=== PATIENT | female | born 1950 | race Hispanic/Latino ===

== ENCOUNTER → 2019-03-20 | Day surgery (SDC) | payer MEDICARE ==
[2019-03-04 14:54] LABS: BASOPHILS % 0.4 % (0.0-1.0); EOSINOPHILS # (AUTO) 0.1 (0.0-0.4); EOSINOPHILS % 1.9 % (0.0-6.0); HEMATOCRIT 38.6 % (34.2-44.1); HEMOGLOBIN 12.8 g/dL (12.0-16.0); LYMPHOCYTES # (AUTO) 1.1 (1.0-3.2); LYMPHOCYTES % 21.4 % (18.0-39.1); MEAN CORPUSCULAR HEMOGLOBIN 28.6 pg (28-32); MEAN CORPUSCULAR HGB CONC 33.2 g/dL (31-35); MEAN CORPUSCULAR VOLUME 86.4 fL (81-99); MONOCYTES # (AUTO) 0.4 (0.2-0.8); MONOCYTES % 8.3 % (4.4-11.3); NEUTROPHILS # (AUTO) 3.6 (2.1-6.9); NEUTROPHILS % 67.6 % (38.7-80.0); PLATELET COUNT 209 x10e3/uL (140-360); RED BLOOD COUNT 4.47 x10e6/uL (3.6-5.1); RED CELL DISTRIBUTION WIDTH 12.7 % (11.7-14.4)
[~2019-03-20] MED LIST: CALCIUM600 M1; EPHEDRINE SULFATE INJ 50 MG/10 ML SYR ONE; FENTANYL CITRATE/PF 100MCG/2 ML INJ ONE; HYDROCHLOROTHIA25 MG PO; MIDAZOLAM HCL 2 MG/2 ML VIAL ONE; MULTI-VITAMIN1 EACH PO; PROPOFOL IV EMULSION 10 MG/ML 50 ML VIAL ONE; Z.0.ESTRADIOL0.5 MG PO; Z.0.GLUCOSAMINE1000; Z.0.METOPROLOL SUCC2 PO
--- OUTSIDE RECORDS SUMMARY | 2019-03-20 06:28 | XMS REPORT ---
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 Mike A Bradly ENCOUNTERS Date Type Provider Location Encounter Diagnosis - Ambulatory Encounter Mike A Bradly Mike A Bradly [facility] - Ambulatory Encounter Mike A Bradly Mike A Bradly [facility] - Ambulatory Encounter Mike A Bradly Mike A Bradly [facility] - Ambulatory Encounter Mike A Bradly Mike A Bradly [facility] - Ambulatory Encounter [facility] Mike A Bradly Mike A Bradly [facility] [facility] - Ambulatory Encounter Mike A Bradly Mike A Bradly [facility] [facility] - Ambulatory Encounter Mike A Bradly Mike A Bradly [facility] [facility] - Ambulatory Encounter Mike A Bradly Mike A Bradly [facility] UN[facility] - Ambulatory Encounter Mike A Bradly Mike A Bradly Ly Goodwin [facility] Asymptomatic postmenopausal status (age- related) (natural) - Ambulatory Encounter Mike A Brdaly Mike A Bradly [facility] UNK - Ambulatory Encounter Mike A Bradly Mike A Bradly [facility] UNK - Ambulatory Encounter Mike A Bradly Mike A Bradly [facility] UNK - Ambulatory Encounter Mike A Bradly Mike A Bradly [facility] UNK - [facility] - [facility] Mike A Bradly Mike A Bradly [facility] [employer] UNK - Ambulatory Encounter Mike A Bradly Mike A Bradly [facility] UNK - Ambulatory Encounter Mike A Bradly Mike A Bradly [facility] Davis [facility] PR[facility] Annual welding machine operator thermit examMammogram not high risk screeningOsteoporosis screeningScreening, vaginal cancer VITAL SIGNS No Information Available Allergies No Known Allergy Information REASON FOR REFERRAL Start Date - End Date Service - Mammogram - Screening - Mammogram - Screening - Bone Density - Bone Density RESULTS Date Observation Value Provider Reference Range Interpretation Location LDL cholesterol, serum 110 mg/dL [facility] 0-99 High " very low density lipoproteins 25 mg/dL [facility] 5-40 " HDL cholesterol, serum 55 mg/dL [facility] >39 " triglyceride, serum, fasting 123 mg/dL [facility] 0-149 " cholesterol, serum 190 mg/dL [facility] 100-199 " alanine aminotransferase (SGPT), serum 20 1/L [facility] 0-32 " aspartate aminotransferase (SGOT), serum 19 1/L [facility] 0-40 " alkaline phosphatase, serum 74 1/L [facility] 39-117 " bilirubin, serum, total 0.8 mg/dL [facility] 0.0-1.2 " albumin/globulin ratio, serum 2.3 [facility] 1.2-2.2 High " globulin, serum 2.0 [facility] 1.5-4.5 " albumin, serum 4.6 g/dL [facility] 3.6-4.8 " protein, total, serum 6.6 g/dL [facility] 6.0-8.5 " calcium, serum 9.6 mg/dL [facility] 8.7-10.3 " carbon dioxide, venous blood 27 mmol/L [facility] 18-29 " chloride, serum 105 mmol/L [facility] 96-106 " potassium, serum 4.4 mmol/L [facility] 3.5-5.2 " sodium, serum 145 mmol/L [facility] 134-144 High " urea nitrogen/creatinine ratio, serum 17 [facility] 12-28 " eGFR if 94 mL/min/((173/100).m2) [facility] >59 " Estimated Glomerular Filtration Rate (calc) 82 mL/min/((173/100).m2) [facility] >59 " creatinine, serum 0.77 mg/dL [facility] 0.57-1.00 " urea nitrogen, blood 13 mg/dL [facility] 8-27 " blood glucose, random 98 mg/dL [facility] 65-99 " immature granulocytes, percentage of total cells, blood 0 % [facility] " basophil count, absolute 0.0 x10E3/uL [facility] 0.0-0.2 " Eosinophil Absolute Count 0.1 X10E3/UL [facility] 0.0-0.4 " monocyte count, blood, automated 0.3 X10E3/UL [facility] 0.1-0.9 " lymphocyte count, blood, automated 0.8 X10E3/UL [facility] 0.7-3.1 " Absolute Neutrophils 3.0 X10E3/UL [facility] 1.4-7.0 " basophils as percent of blood leukocytes 1 % [facility] " eosinophils as percent of blood leukocytes 1 % [facility] " monocytes as percent of blood leukocytes 7 % [facility] " lymphocytes as percent of blood leukocytes 20 % [facility] " neutrophils as percent of blood leukocytes 71 % [facility] " platelet count 219 X10E3/UL [facility] 150-379 " red blood cell distribution width 13.6 % [facility] 12.3-15.4 " mean corpuscular hemoglobin concentration, RBC 33.6 G/DL [facility] 31.5-35.7 " mean corpuscular hemoglobin, RBC 29.5 pg [facility] 26.6-33.0 " mean corpuscular volume, RBC 88 fL [facility] 79-97 " hematocrit, blood 39.9 % [facility] 34.0-46.6 " hemoglobin, blood 13.4 g/dL [facility] 11.1-15.9 " erythrocyte (RBC) count 4.55 X10E6/UL [facility] 3.77-5.28 " leukocyte count, blood 4.2 X10E3/UL [facility] 3.4-10.8 HISTORY OF IMMUNIZATIONS No Information Available Medications No Known Medication Information SOCIAL HISTORY Date Observation Value Provider drug use, illicit Never Ly Shah " alcohol use Never Ly Shah " social history E&M . Spouse/Partner/Significant Other: Kyaw. Not homeless. Born in [place]. Not employed. Unemployed. Highest education level: high school graduate. Sex at : Female. Sexual orientation: Heterosexual. Gender identity: Female. Gender of partner(s): Male. Sexually Active: yes. Ly Shah " social history reviewed E&M reviewed today Ly Shah " sexual orientation Heterosexual Ly Shah " assessment of health literacy ([facility], 1928[facility]1983 2014 Standards, 3C10) Adequate Ly Shah " passive cigarette smoke exposure No Ly Martinezs " smoking status never smoker Ly Shah " Exercise Program Referral T Ly Shah " Weight Management Counseling Provided T Ly Shah " Nutrition intervention T Ly Shah sexual orientation Heterosexual Aamir Goodwin " assessment of health literacy ([facility], 1928–1983 2014 Standards, 3C10) Adequate Aamir Goodwin " passive cigarette smoke exposure No Aamir Goodwin " drug use, illicit Never Ly Shah " alcohol use Never Ly Shah " smoking status never smoker Ly Shah " social history reviewed E&M reviewed today Ly Shah " Exercise Program Referral T Aamir Goodwin " Weight Management Counseling Provided T Aamir Goodwin " Nutrition intervention T Aamir Goodwin patient considered to be homeless No Ingrid Davis " sex at Female Ingridaravind Davis " Occupation #1 Unemployed Ingrid Ryan " drug use, illicit Never Ingrid Davis " alcohol use Never Ingrid Ryan " social history reviewed E&M reviewed today Ingrid Davis " sexual orientation Heterosexual Ingrid Ryan " passive cigarette smoke exposure No Ingrid Davis " smoking status never smoker Ingridaravind Davis " assessment of health literacy ([facility], 1928[facility]1983 2014 Standards, 3C10) Adequate Ingrid Davis " Exercise Program Referral T Ingrid Davis " Weight Management Counseling Provided T Ingrid Davis " Nutrition intervention T Ingrid Davis FUNCTIONAL STATUS No Information Available MENTAL STATUS Date Observation Value Provider Generalized Anxiety Disorder Questionnaire - Question 2 0 Ly Martinezs " Generalized Anxiety Disorder Questionnaire - Question 1 0 Ly Shah Generalized Anxiety Disorder Questionnaire - Question 2 0 Aamir Goodwin " Generalized Anxiety Disorder Questionnaire - Question 1 0 Aamir Goodwin Generalized Anxiety Disorder Questionnaire - Question 2 0 Ingrid Ryan " Generalized Anxiety Disorder Questionnaire - Question 1 0 Ingrid Ryan MEDICAL EQUIPMENT No Information Available FAMILY HISTORY No Information Available INSURANCE PROVIDERS No Information Available ADVANCE DIRECTIVES No Information Available TREATMENT PLAN Date Name Pap w/HPV w rflx 16/18/45 (30+) Lipid Panel Comp. Metabolic Panel (14) CBC With Differential/Platelet - - - - - Est Patient Well Exam (40 - 64 Yrs) - 70695 Est Patient Well Exam (65 & Over) - 81082 New Patient Well Exam (40 - 64 Yrs) - 10414 HISTORY OF PROCEDURES No Information Available GOALS No Information Available HEALTH CONCERNS No Information Available
--- OUTSIDE RECORDS SUMMARY | 2019-03-20 06:28 | XMS REPORT ---
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 Allergies, Adverse Reactions, Alerts This patient has no known allergies or adverse reactions. Medications This patient has no known medications. Results Test Description Test Time Test Comments Text Results Atomic Results Result Comments SCR MAMM BILATERAL ROBERTO CAD DIGITAL 2019-01-10 16:48:14 - SCR MAMM BILATERAL ROBERTO CAD DIGITALBILATERAL DIGITAL SCREENING MAMMOGRAM 3D/2D WITH CAD: 01/10/2019CLINICAL: Asymptomatic. Digital breast tomosynthesis was performed in addition to routine CC and MLO views. Current mammographic images were evaluated by either a [employer] M-Vu or a [employer] ImageChecker CAD (computer aided detection system). Comparison is made to exams dated 12/01/2017 mammogram, 2016 mammogram, and 11/23/2015 mammogram - [facility]. There are scattered fibroglandular tissues in both breasts. There is a stable benign mass in the lateral right breast. There also is a stable benign-appearing asymmetry in the posteromedial left breast. No suspicious new mass, architectural distortion, malignant type calcification, or lymph node abnormality detected. Breast architecture is stable compared to prior exams.IMPRESSION: BENIGNThere is no mammographic evidence of malignancy. Resume annual screening mammography in one year. Jose G Verma M.D. rb/:01/10/2019 16:48:14 Salesperson Hosiery: Adeline JOHNSTON, [facility]: BIRADS 1-2 Normal Mammogram BI-RADS: 2 Benign
[2019-03-20 10:50] VITALS: BP 125/63
--- NOTE | 2019-03-20 15:44 | Operative Report ---
DATE OF PROCEDURE: 03/20/2019 SURGEON: Charles Hernandez MD PROCEDURES: EGD with biopsies and colonoscopy. INDICATIONS FOR EGD: Heartburn. INDICATION FOR COLONOSCOPY: Surveillance colonoscopy, personal history of colon polyps. MEDICATIONS: The patient was done under MAC, please see anesthesiologist's note. PROCEDURE IN DETAIL: With the patient in the left lateral decubitus position, a flexible fiberoptic Olympus gastroscope was introduced into the esophagus under direct visualization without any difficulty. There was some patchy erythema noted in distal esophagus. GE junction appeared somewhat nodular and that was biopsied. The scope was then advanced with ease into the stomach traversing a small sliding hiatal hernia. Mucosa overlying the antrum and the body revealed some patchy erythema and low-grade to moderate edema, and biopsies were obtained and sent to stain for H. pylori. Pylorus was of normal contour and shape. It was intubated with ease and the scope was advanced all the way to the second portion of the duodenum. Biopsies were obtained from the proximal second portion and duodenal bulb to rule out sprue. The scope was then withdrawn back into the stomach and retroflexed, and mucosa overlying the fundus and the cardia appeared to be within normal limits. The scope was then straightened out, it was subsequently withdrawn, and the patient tolerated the procedure well. IMPRESSION: 1. Distal esophagitis. 2. GE junction somewhat nodular, biopsied. 3. Small sliding hiatal hernia. 4. Gastritis, biopsied, biopsies sent to stain for Helicobacter pylori. 5. Rule out sprue. PLAN: Follow up histology. Initiate Protonix 40 mg 1 p.o. q.a.m. before meals. The patient was then turned around and after adequate lubrication of the anal canal, a flexible fiberoptic Olympus colonoscope was inserted into the rectum with ease and advanced all the way to the cecum. The scope was then withdrawn slowly. Mucosa overlying the cecum, ascending colon, transverse colon, descending, sigmoid, and rectum appeared to be within normal limits. The scope was then retroflexed into the distal rectum and small internal hemorrhoids were noted, none of which was actively bleeding. The scope was then straightened out, it was subsequently withdrawn, and the patient tolerated the procedure well. IMPRESSION: Internal hemorrhoids, none actively bleeding. PLAN: Initiate high-fiber low-fat diet. Initiate high-fiber supplement. The patient might benefit from a followup colonoscopy in 5 years. MD CORAZON Bell/CARI /[id number] cc: Wander Hernandez MD
== END | disposition home or self-care (01) ==
LOC: OR 06:25
PROVIDERS: ATTEND Internal Medicine Gastroenterology
DX: K29.50 Unspecified chronic gastritis without bleeding (principal); Z86.010 Personal history of colon polyps; K29.80 Duodenitis without bleeding; K21.0 Gastro-esophageal reflux disease with esophagitis; K44.9 Diaphragmatic hernia without obstruction or gangrene; K64.8 Other hemorrhoids; I10 Essential (primary) hypertension; R00.1 Bradycardia, unspecified; Z01.812 Encounter for preprocedural laboratory examination; Z01.810 Encounter for preprocedural cardiovascular examination; Z86.31 Personal history of diabetic foot ulcer
CPT/HCPCS: 36415; 43239; 45378; 85025; 88305; 88312; 93005; J2250; J2704; J3010

== ENCOUNTER → 2024-02-08 | Day surgery (SDC) | payer MEDICARE, OTHER ==
[2024-02-02 11:52] LABS: BASOPHILS % 0.4 % (0.0-1.0); EOSINOPHILS # (AUTO) 0.1 (0.0-0.4); EOSINOPHILS % 1.1 % (0.0-6.0); HEMATOCRIT 40.6 % (34.2-44.1); HEMOGLOBIN 13.1 g/dL (12.0-16.0); LYMPHOCYTES # (AUTO) 0.8 (1.0-3.2); LYMPHOCYTES % 14.4 % (18.0-39.1); MEAN CORPUSCULAR HGB CONC 32.3 g/dL (31-35); MONOCYTES # (AUTO) 0.5 (0.2-0.8); NEUTROPHILS # (AUTO) 4.3 (2.1-6.9); NEUTROPHILS % 75.9 % (38.7-80.0); PLATELET COUNT 219 x10e3/uL (140-360); RED BLOOD COUNT 4.51 x10e6/uL (3.6-5.1); RED CELL DISTRIBUTION WIDTH 13.3 % (11.7-14.4); WHITE BLOOD COUNT 5.64 x10e3/uL (4.8-10.8)
[~2024-02-08] MED LIST changes: -EPHEDRINE SULFATE INJ 50 MG/10 ML SYR ONE; -FENTANYL CITRATE/PF 100MCG/2 ML INJ ONE; +LIPITOR10 MG PO; +MAGNESIUM OXID400 MG PO; +PANTOPRAZOLE SO40 MG PO; -PROPOFOL IV EMULSION 10 MG/ML 50 ML VIAL ONE; +VIT C PO; +VIT D3 PO
[2024-02-08] MEDS: LACTATED RINGER'S 1,000 ML ONE (06:46)
[2024-02-08 08:16] VITALS: TEMP 97
[2024-02-08 08:36] VITALS: BP 138/67; PULSE 61; RESP 18; O2SAT 99
== END | disposition home or self-care (01) ==
LOC: OR 06:04
PROVIDERS: ATTEND Internal Medicine Gastroenterology
DX: K29.50 Unspecified chronic gastritis without bleeding (principal); K31.A0 Gastric intestinal metaplasia, unspecified; K22.2 Esophageal obstruction; K44.9 Diaphragmatic hernia without obstruction or gangrene; K21.9 Gastro-esophageal reflux disease without esophagitis; Z78.9 Other specified health status; I10 Essential (primary) hypertension; E78.5 Hyperlipidemia, unspecified; Z01.810 Encounter for preprocedural cardiovascular examination; Z01.812 Encounter for preprocedural laboratory examination; Z79.899 Other long term (current) drug therapy; Z68.34 Body mass index [BMI] 34.0-34.9, adult
CPT/HCPCS: 36415; 43239; 85025; 88305; 88342; 93005; J2250; J7121; 88312